=== PATIENT | male | born 1960 | race Caucasian/White ===

== ENCOUNTER → 2017-06-15 | Outpatient (CLI) | payer BC ==
[~2017-06-15] MED LIST: ACET325T96 PO; ALBU1AER9 INH; ATOR-26 PO; BUDESONIDE SUSP INTNAS; CLR10 PO; ESCI10TA17 PO; IPRASOL4 INH; LORA-741 PO; OXYC-57 PO; PRT/40 PO; PSEU120T21 PO; SYMIN INH; losartan PO
--- NOTE | 2017-06-15 14:33 | DIAGNOSTIC IMAGING REPORT ---
CHEST 2 VIEWS ROUTINE HISTORY: K82.9 Gallbladder disease Pre-op [id number] COMPARISON: Chest 06/26/2014. FINDINGS: The heart is normal in size. The lungs are clear. No pleural effusions. No pneumothorax. A 1 cm nodular density within the right upper lobe appears to represent a shirt button. IMPRESSION: No acute process. Electronically signed by: Nestor Paniagua M.D. 06/15/2017 2:31 PM Dictated Date/Time: 06/15/2017 2:29 PM
== END | disposition home or self-care (01) ==
LOC: C.RAD 13:28
PROVIDERS: ATTEND Surgery
DX: K82.9 Disease of gallbladder, unspecified (principal)

== ENCOUNTER 2017-06-20 06:37 | Day surgery (SDC) | payer BC ==
[2017-06-14 16:27] VITALS: BMI 29.0
[~2017-06-20] VITALS: Ht 177.8 cm; Wt 92.3 kg
[~2017-06-20 06:37] MED LIST changes: +LACTATED RINGER'S 1000ML 1,000 ML IV SCH; -OXYC-57 PO; -losartan PO
[2017-06-20] MEDS ORDERED: losartan PO (07:06)
[2017-06-20 07:08] VITALS: BP 113/87; PULSE 78; TEMP 36.8; O2SAT 95; Ht 177.8 cm; Wt 92.3 kg
--- NOTE | 2017-06-20 08:31 | History & Physical Bridge Note ---
H&P Re-Evaluation Bridge Note: I have examined the patient, reviewed the History & Physical and in the interval since the performance of the History & Physical I have noted the following changes of clinical significance: No changes noted SO at bedside all ? answered
[2017-06-20] MEDS ORDERED: PROPOFOL IV EMULSION 10 MG/ML 20 ML VIAL IV ONE ×2 (08:35→09:48)
[2017-06-20] MEDS ORDERED: ONDANSETRON INJ 2 MG/ML 2 ML VIAL ONE (08:35)
[2017-06-20] MEDS ORDERED: LIDOCAINE HCL 2% 2 ML VIAL (20MG/ML) ONE (08:35)
[2017-06-20] MEDS ORDERED: CISATRACURIUM BESYLATE IV SOLN 2 MG/ML 10 ML VIAL ONE (08:35)
[2017-06-20] MEDS ORDERED: DEXAMETHASONE SOD INJ 4 MG/ML VIAL ONE (08:35)
[2017-06-20] MEDS ORDERED: FENTANYL CITRATE INJ 50 MCG/1 ML 2 ML VIAL ONE ×3 (08:36→09:46)
[2017-06-20] MEDS ORDERED: MIDAZOLAM HCL 1 MG/ML 2ML VIAL ONE (08:36)
[2017-06-20] MEDS ORDERED: CONRAY 60% 50 ML VIAL ONE (08:38)
[2017-06-20] MEDS ORDERED: LIDOCAINE/EPINEPHRINE 1% 20 ML VIAL ONE (08:38)
[2017-06-20] MEDS ORDERED: SUCCINYLCHOLINE CHLORIDE 20 MG/ML 10 ML VIAL IV ONE (09:02)
[2017-06-20] MEDS ORDERED: EpHEDrine SULFATE INJ 50 MG/ML AMP ONE (09:25)
[2017-06-20] MEDS ORDERED: ROCURONIUM BROMIDE 10 MG/ML 5 ML VIAL IV ONE (09:48)
--- NOTE | 2017-06-20 09:50 | DIAGNOSTIC IMAGING REPORT ---
CHOLANGIOGRAM O.R. CLINICAL HISTORY: 57 years-old Male presenting with CHOLANGIOGRAM. TECHNIQUE: Fluoroscopy was provided for an intraoperative cholangiogram status post cholecystectomy. Contrast was injected through the cystic duct remnant. COMPARISON: None. FINDINGS: Common duct mildly dilated with smooth tapering at the ampulla Vater. Apparent cystic duct remnant noted. Nasogastric tube terminates in the stomach. There are no filling defects seen within the common bile duct to suggest a retained stone. Contrast extends into the small bowel. There is no gross intrahepatic bile duct dilatation allowing for under opacification. Fluoroscopy dosage (mGy): Not available. Fluoroscopy time: 3 seconds. Number of fluoroscopic spot images: 2. IMPRESSION: Fluoroscopy provided for an intraoperative cholangiogram status post cholecystectomy. Mild common duct dilatation, possibly a reservoir effect in the post cholecystectomy state. No intrahepatic or ductal dilatation. Electronically signed by: Suraj Owens M.D. 06/20/2017 9:48 AM Dictated Date/Time: 06/20/2017 9:45 AM
[2017-06-20] MEDS ORDERED: SODIUM CHLORIDE 0.9% 1000ML 1,000 ML IV SCH (10:14)
[2017-06-20] MEDS ORDERED: ATROPINE SULFATE 0.1 MG/ML 5ML SYR IV PRN (10:15)
[2017-06-20] MEDS ORDERED: PROMETHAZINE HCL INJ 12.5 MG in SODIUM CHLORIDE 0.9% 50ML 50 ML IV PRN (10:15)
[2017-06-20] MEDS ORDERED: NALOXONE HCL 0.4 MG/1 ML VIAL/CARP IV PRN (10:15)
[2017-06-20] MEDS ORDERED: HYDROmorphone INJ 1 MG/ML SYR IV PRN (10:15)
[2017-06-20] MEDS ORDERED: EpHEDrine SULFATE INJ 50 MG/ML AMP IV PRN (10:15)
[2017-06-20] MEDS ORDERED: LABETALOL HCL IV 5 MG/ML 20ML IV PRN (10:15)
[2017-06-20] MEDS ORDERED: ONDANSETRON INJ 2 MG/ML 2 ML VIAL IV PRN ×2 (10:15)
[2017-06-20] MEDS ORDERED: OXYCODONE/ACETAMINOPHEN 5-325 TAB PO PRN ×2 (10:15)
[2017-06-20] MEDS ORDERED: FLUMAZENIL 0.1 MG/1 ML 10 ML VIAL IV PRN (10:15)
--- NOTE | 2017-06-20 10:17 | [facility] Operative Report ---
Operative Report Operative Date Jun 20, 2017. Pre-Operative Diagnosis Cholecystitis Post-Operative Diagnosis Same as preoperative Procedure(s) Performed Laparoscopic Cholecystectomy with Cholangiogram Surgeon Dr. Ricardo Henson Calculus Teacher Surgeon(s) Gretchen Rodas PA-C Estimated Blood Loss 5ml Findings ccc Specimens A.) Gallbladder and contents Indications pain ruq and gallbladder disease Description of Procedure OR summary dictated confirmation number [id number] I attest to the content of the Intraoperative Record and any orders documented therein. Any exceptions are noted below.
[2017-06-20] MEDS ORDERED: NEOSTIGMINE METHYLSULFATE 5 MG/5 ML SYR ONE (10:21)
[2017-06-20] MEDS ORDERED: OXYC-57 PO (10:21)
[2017-06-20] MEDS ORDERED: GLYCOPYRROLATE INJ 0.2 MG/ML VIAL ONE (10:21)
--- NOTE | 2017-06-20 10:24 | Discharge Instructions ---
Discharge Instructions Date of Service Jun 20, 2017. Admission Reason for Admission: Gallbladder Disease Discharge Discharge Diagnosis / Problem: Gallbladder Disease Discharge Goals Goal(s): Decrease discomfort, Improve function Activity Recommendations Activity Limitations: as noted below Lifting Limitations: no more than 10 pounds Exercise/Sports Limitations: until after follow-up appointment May Resume Sexual Activity: after follow-up appointment Shower/Bathe: tomorrow Driving or Machine Use: resume 3 days after discharge . Instructions / Follow-Up Instructions / Follow-Up Please follow-up with Dr. Henson in the office in 1-2 weeks. Please call the office at [phone] to make an appointment if you do not have one already. Please call the office with any questions or concerns. Current Hospital Diet Patient's current hospital diet: Discharge Diet Recommended Diet: Regular Diet Procedures Procedures Performed: Laparoscopic Cholecystectomy with Cholangiogram Pending Studies Studies pending at discharge: yes List of pending studies: Pathology report. Medical Emergencies . Who to Call and When: Medical Emergencies: If at any time you feel your situation is an emergency, please call 911 immediately. . Non-Emergent Contact Non-Emergency issues call your: Primary Care Provider, Surgeon Call Non-Emergent contact if: temperature is above 101.5, your pain is not controlled, wound has increased drainage, wound has increased redness . "Provider Documentation" section prepared by Gretchen Rodas. . VTE Core Measure Inpt VTE Proph given/why not?: SCD's [place] Drug Monitoring Program Search Results: patient reviewed within database, no issues identified
--- NOTE | 2017-06-20 10:46 | Anesthesiology Progress Note ---
Anesthesia Post Op Note Date & Time Jun 20, 2017 at 10:46 Vital Signs Pain Intensity: 0 Vital Signs Past 12 Hours Date Time Temp Pulse Resp B/P (MAP) Pulse Ox O2 Delivery O2 Flow Rate FiO2 06/20/17 10:35 86 18 149/75 100 Oxymask 10 06/20/17 10:25 88 16 161/79 100 Oxymask 10 06/20/17 10:16 36.3 89 12 177/87 100 Oxymask 10 06/20/17 07:08 36.8 78 20 113/87 (96) 95 Room Air Notes Mental Status: alert / awake / arousable, participated in evaluation Pt Amnestic to Procedure: Yes Nausea / Vomiting: adequately controlled Pain: adequately controlled Airway Patency, RR, SpO2: stable & adequate BP & HR: stable & adequate Hydration State: stable & adequate Anesthetic Complications: no major complications apparent
[2017-06-20 11:06] VITALS: BP 165/80; PULSE 70; TEMP 36.8; O2SAT 99
[2017-06-20 11:40] VITALS: BP 120/61; PULSE 66; O2SAT 96
[2017-06-20 12:06] VITALS: BP 136/60; PULSE 70; TEMP 36.8; O2SAT 97
--- NOTE | 2017-06-20 19:52 | OPERATIVE REPORT ---
DATE OF OPERATION: 06/20/2017 SURGEON: MD Sixto. COSTUMING SUPERVISOR: Gretchen Rodas PA-C. PREOPERATIVE DIAGNOSIS: Chronic cholecystitis, symptomatic. POSTOPERATIVE DIAGNOSIS: Same, cholelithiasis. PROCEDURE: Laparoscopic cholecystectomy, intraoperative cholangiogram. SUMMARY: After induction of general endotracheal anesthesia, the patient's abdomen was prepped with Betadine scrubbing solution and properly draped. We made a small transverse incision above the umbilicus sufficient enough to place a Veress needle followed by a 5 mm trocar. Point of entry inspected and no injury were identified. Under direct visualization, we placed a 5 mm epigastric port and two 5 mm subcostal ports with preemptive local analgesia 1% Xylocaine. The gallbladder was visualized after the patient was placed in reverse Trendelenburg position and rotated to the left. A grasper was used to elevate the gallbladder. I identified that no adhesions of the gallbladder, although the gallbladder appeared to be a little bit more thick walled than normal. We dissected out the triangle of Calot. We identified the cystic duct which was small. We clipped it proximally. A small opening in the cystic duct was made. A #4 ureteral catheter transversing the abdominal wall was positioned in the cystic duct. It was identified that the common bile duct was slightly dilated more than normal. The distal common bile duct appeared to be tapering. We did see the pancreatic duct. There were no true filling defects. We could see it dye into the duodenum and I suspect that what was going on, the patient had been recently been sick with some chills and fever. He may have passed the stone. At this point, we then removed the cholangiocath, the cystic duct was chocked on a little bit, doubly clipped and divided. We then identified the artery and the anterior and posterior branches were easily identifiable, were doubly clipped proximally and distally. Gallbladder was removed in the antegrade fashion, leaving much of the posterior peritoneum as possible. In fact, the dissection was relatively easy because the patient has still some edema on wall of the gallbladder. Subhepatic, suprahepatic area was checked for hemostasis and appeared satisfactory. The gallbladder was removed intact through the epigastric port. We opened it at the end of the procedure. The patient had bilirubinate stones and they are all fragments, nothing really significant, but certainly could explain the clinical picture. At this point, the individual trocar removed after we put the camera in the right subcostal port to visualize the umbilical area, there were no bleeding identified. We checked the other bleeding sites. All the trocars removed, the wound was then closed. I used fascial stitch 0 Vicryl suture for the epigastric area, the other one was Monocryl, Steri-Strips applied. The procedure was tolerated well by the patient. Estimated blood loss approximately 5 mL. The patient was taken to recovery room in good condition. I attest to the content of the Intraoperative Record and any orders documented therein. Any exceptions are noted below. FRANCES
== END 2017-06-20 10:30 | disposition home or self-care (01) ==
LOC: C.ACU 06:37
PROVIDERS: ATTEND Surgery
DX: K80.10 Calculus of gallbladder with chronic cholecystitis without obstruction (principal); E78.00 Pure hypercholesterolemia, unspecified; J45.909 Unspecified asthma, uncomplicated; J32.9 Chronic sinusitis, unspecified; Z79.899 Other long term (current) drug therapy